=== PATIENT | male | born 1995 | race African-American/Black ===

== ENCOUNTER 2021-08-01 12:58 | Emergency (ER) | payer MEDICAID ==
[~2021-08-01] VITALS: Ht 172.7 cm; Wt 72.6 kg
--- NOTE | 2021-08-01 13:20 | NUR ---
BIB SELF C/O BACK OF THE HEAD PAIN S/P SYNCOPE LAST NIGHT AROUND 10PM, "I WAS JUST STANDING, PASSED OUT AND HIT BACK OF MY HEAD" , AAOX3, BREATHING EVEN AND NON LABORED, AWAITING MD KING
--- NOTE | 2021-08-01 14:13 | NUR ---
DR NICHOLS AT BEDSIDE
[2021-08-01 15:24] LABS: BASOPHILS % (AUTO) 0.5 % (0.0-2.0); EOSINOPHILS % (AUTO) 1.2 % (0.0-6.0); HEMATOCRIT 47 % (39-51); HEMOGLOBIN 15.6 g/dL (13.5-17.5); LYMPHOCYTES # (AUTO) 1.8 K/uL (0.8-4.8); LYMPHOCYTES % (AUTO) 21.8 % (20.0-44.0); MEAN CORPUSCULAR HGB CONC 33 g/dl (31.0-36.0); MEAN CORPUSCULAR VOLUME 91 fL (80-96); MONOCYTES # (AUTO) 0.6 K/uL (0.1-1.30); MONOCYTES % (AUTO) 7.6 % (2.0-12.0); NEUTROPHILS # (AUTO) 5.5 K/uL (1.8-8.9); NEUTROPHILS % (AUTO) 68.9 % (43.0-81.0); PLATELET COUNT (AUTO) 213 K/uL (150-450); RED BLOOD CELL COUNT(AUTO) 5.15 MIL/uL (4.5-6.0); WHITE BLOOD COUNT (AUTO) 8.1 K/uL (4.3-11.0)
--- NOTE | 2021-08-01 16:54 | NUR ---
Patient does not wish to proceed with medical care recommended by Dr. Manuel. Patient given information related to possible complications, up to and including , which could occur as a result of leaving the hospital at this time. Patient verbalizes understanding of risks involved due to leaving against medical advice. Patient has signed AMA form.
--- NOTE | 2021-08-01 16:55 | NUR ---
IV removed. Catheter intact and site benign. Pressure and 4x4 applied to site. No bleeding noted.
[2021-08-01 17:03] LABS: CALCIUM, SERUM 9.3 mg/dL (8.5-10.1); CARBON DIOXIDE 29 mmol/L (21-32); CREATININE 0.9 mg/dL (0.6-1.3); GLUCOSE 97 mg/dL (74-106); UREA NITROGEN, BLOOD 18 mg/dL (7-18)
[2021-08-01 17:06] VITALS: BP 134/78
[2021-08-01 18:55] LABS: CHLORIDE 102 mmol/L (98-107); POTASSIUM 4.3 mmol/L (3.5-5.1); SODIUM SERUM 136 mmol/L (136-145)
== END 2021-08-01 17:07 | disposition home or self-care (01) ==
LOC: ER 13:05
DX: R55 Syncope and collapse (principal); H53.9 Unspecified visual disturbance; R51.9 Headache, unspecified; Z60.2 Problems related to living alone
CPT/HCPCS: 36415; 70450-TC; 71045-TC; 80048-TC; 84484-TC; 85025-TC